=== PATIENT | female | born 2000 | race Caucasian/White ===

== ENCOUNTER 2025-02-12 01:34 | Emergency (ER) | payer SELFPAY ==
[~2025-02-12] VITALS: Ht 167.6 cm; Wt 64.0 kg
[2025-02-12 01:37] VITALS: O2SAT 100
[2025-02-12 01:44] VITALS: BP 124/73; PULSE 77; TEMP 36.7; O2SAT 100
[2025-02-12] MEDS ORDERED: AMOX1TAB16 MT (02:48)
[2025-02-12 02:51] VITALS: RESP 18
[2025-02-12] MEDS: KETOROLAC 15MG/ML VIAL IM ONE (02:51)
== END 2025-02-12 02:53 | disposition home or self-care (01) ==
LOC: ER 01:34
DX: K04.7 Periapical abscess without sinus (principal)
CPT/HCPCS: 99283; 96372; J1885

== ENCOUNTER 2025-03-11 09:30 | Emergency (ER) | payer MEDICAID ==
[~2025-03-11] VITALS: Ht 170.2 cm; Wt 50.0 kg
[~2025-03-11 09:30] MED LIST: AMOX1TAB16 MT
[2025-03-11 09:32] VITALS: O2SAT 99
[2025-03-11 09:48] VITALS: TEMP 36.9; O2SAT 100
[2025-03-11 10:20] LABS: BASOPHILS % 0.4 % (0.0-2.0); EOSINOPHILS % 3.9 % (0.0-5.0); HEMATOCRIT. 35.3 % (36.0-48.0); MEAN CORPUSCULAR HEMOGLOBIN 30.2 pg (28.0-32.0); MEAN PLATELET VOLUME 7.7 fl (7.4-10.4); MONOCYTES % 7.9 % (2.0-8.0); NEUTROPHILS % 60.8 % (40.0-76.0); PLATELET 263 x1000/uL (130-400); RED BLOOD CELL COUNT 3.97 mill/uL (4.2-5.4); RED CELL DISTRIBUTION WIDTH 13.2 % (11.6-14.6); WHITE BLOOD COUNT 9.8 x1000/uL (4.5-11.0)
[2025-03-11] MEDS ORDERED: DICYCLOMINE 10 MG/5 ML ORAL SYR PO STA (10:29)
[2025-03-11] MEDS ORDERED: FAMOTIDINE 20MG TABLET PO ONE (10:30)
[2025-03-11 10:45] LABS: CARBON DIOXIDE 24 mEq/L (21-32); CHLORIDE 107 mEq/L (98-107); POTASSIUM 3.8 mEq/L (3.5-5.1); SODIUM 139 mEq/L (136-145)
[2025-03-11 10:47] LABS: CALCIUM 9.8 mg/dL (8.7-10.4)
[2025-03-11 10:51] LABS: CREATININE 0.7 mg/dL (0.6-1.0); GLUCOSE 107 mg/dL (70-105); UREA NITROGEN BLOOD 11 mg/dL (9-23)
[2025-03-11 10:55] LABS: HCG SCREEN NEGATIVE
[2025-03-11] MEDS ORDERED: KETOROLAC 30MG/ML VIAL IM ONE (11:00)
[2025-03-11] MEDS: ONDANSETRON 4MG ODT PO STA (11:05)
[2025-03-11 11:09] VITALS: BP 127/72; PULSE 94; RESP 16
[2025-03-11] MEDS: IBUPROFEN 600MG TABLET PO ONE (11:09)
[2025-03-11 11:35] LABS: ALANINE AMINOTRANSFERASE 9 IU/L (10-49); ALBUMIN 4.4 g/dL (3.2-4.8); ASPARTATE AMINOTRANSFERASE 21 IU/L (<34); BILIRUBIN DIRECT < 0.1 mg/dL (<=3.0); BILIRUBIN TOTAL 0.3 mg/dL (0.1-1.0); PROTEIN TOTAL 7.3 g/dL (6.0-8.3)
[2025-03-11 11:38] LABS: CLARITY URINE CLOUDY (CLEAR); COLOR URINE YELLOW (YELLOW); GLUCOSE URINE NEGATIVE (NEGATIVE); KETONES URINE NEGATIVE (NEGATIVE); LEUKOCYTE ESTERASE URINE 2+ (NEGATIVE); NITRITE URINE NEGATIVE (NEGATIVE); OCCULT BLOOD URINE NEGATIVE (NEGATIVE); PH URINE 5.5 (4.5-8.0); PROTEIN URINE NEGATIVE (NEGATIVE); SPECIFIC GRAVITY URINE 1.014 (1.005-1.030); UROBILINOGEN URINE 0.2 E.U./dL (0.2-1.0)
[2025-03-11] MEDS ORDERED: IBUP-2029 MT (12:06)
[2025-03-11] MEDS ORDERED: NITR-87 MT (12:06)
[2025-03-11 12:13] LABS: MUCUS URINE TRACE /lpf (< = 2+); SQUAMOUS EPITHELIAL CELL URINE 3+ /lpf (RARE/1+)
[2025-03-11 12:33] LABS: BACTERIA URINE 3+; RBC URINE 0-2 /hpf (0-2)
== END 2025-03-11 12:11 | disposition home or self-care (01) ==
LOC: ER 09:30
DX: R10.31 Right lower quadrant pain (principal); R82.71 Bacteriuria; Z79.899 Other long term (current) drug therapy
CPT/HCPCS: 99284; 74176; 80076; 80048; 81003; 81025; 84703; 83690; 85025; 36415; Q0162; J1885